=== PATIENT | male | born 1935 | race Caucasian/White ===

== ENCOUNTER → 2020-01-24 | Outpatient (CLI) | payer OTHER ==
[~2020-01-24] MED LIST: ASPI325 PO; ASPI81CH PO; ATEN100 PO; ATOR80 PO; CLOP75 PO; Lisinopril2.5 MG PO; METF500C PO; METF850 PO; Nitrostat0.4 MG SL; SIMV10 PO; Ultram50 MG PO; VALS80 PO
== END | disposition home or self-care (01) ==
LOC: LAB 12:00 → LAB SHORT 12:00
DX: R91.8 Other nonspecific abnormal finding of lung field (principal)
CPT/HCPCS: 87070; 87077; 87186; 87205

== ENCOUNTER 2020-09-12 07:05 | Day surgery (SDC) | payer OTHER ==
[~2020-09-12] VITALS: Ht 180.3 cm; Wt 78.4 kg
[2020-09-12] MEDS ORDERED: ALOGLIPTIN12.5 M1 PO (07:39)
== END 2020-09-12 09:13 | disposition home or self-care (01) ==
LOC: ORSCSDS 07:05
PROVIDERS: Ophthalmology
PROC: 08RJ3JZ Replacement of Right Lens with Synthetic Substitute, Percutaneous Approach (ICD-10-PCS; principal; 2020-09-12 08:30)
DX: H25.11 Age-related nuclear cataract, right eye (principal); I25.2 Old myocardial infarction; E11.9 Type 2 diabetes mellitus without complications; Z79.899 Other long term (current) drug therapy; Z79.82 Long term (current) use of aspirin; Z79.84 Long term (current) use of oral hypoglycemic drugs; G47.33 Obstructive sleep apnea (adult) (pediatric)
CPT/HCPCS: 82947; J2001; J2250; J3010; J3301; J7040; V2632